=== PATIENT | female | born 1955 | race Caucasian/White ===

== ENCOUNTER 2018-07-22 13:05 | Emergency (ER) | payer OTHER ==
[~2018-07-22] VITALS: Ht 167.6 cm; Wt 76.2 kg
[~2018-07-22 13:05] MED LIST: ATOR10 PO; COMBIVENT RESPIM4 GM INH; CYCL10 PO; Collagen Plus1 EACH PO; DICLOFENAC 50MG PO; Diclofenac Pota50 MG PO; ENOX40I SC; EYE DROP TEARS15 ML OP; FERR325 PO; HYDMOR2 PO; HYDPAM50 PO; HYDR1TAB94 PO; Hair, Skin & N1 EACH PO; Hydrocodone-Ap1 EA23 PO; IBUP800 PO; LANS15EC PO; LANS30EC PO; METO25ER PO; MOME220I INH; OLME20 PO; OLME20-12. PO; OXYACE5T PO; OXYC10TA19 PO; PENVK500 PO; SIMV10 PO; TIOT18 INH; Valium5 MG PO; Verotin-Gr Cap1 EACH PO
[2018-07-22] MEDS ORDERED: GABA300 PO (13:12)
[2018-07-22] MEDS ORDERED: Hydrocodone-Ap1 EA23 PO (13:13)
[2018-07-22] MEDS ORDERED: EZET10 PO (13:14)
== END 2018-07-22 14:36 | disposition home or self-care (01) ==
LOC: ER 13:05
DX: S09.90XA Unspecified injury of head, initial encounter (principal); W22.8XXA Striking against or struck by other objects, initial encounter
CPT/HCPCS: 70450; 99283-25

== ENCOUNTER 2019-09-19 13:17 | Day surgery (SDC) | payer OTHER ==
[~2019-09-19 13:17] MED LIST changes: +EZET10 PO; +GABA300 PO
[2019-09-19] MEDS ORDERED: COMBIVENT RESPIM4 GM (13:46)
[2019-09-19] MEDS ORDERED: DULO30 (13:46)
[2019-09-19] MEDS ORDERED: TELM40 (13:47)
--- NOTE | 2019-09-19 14:17 | NUR ---
09/19/19 1417 Valente Ward S PATIENT STATED SHE ATE A SANDWICH AT 10:30 THIS MORNING SO THE CASE WAS CANCELLED. DR LAWLER INSTRUCTED PATIENT TO CALL AND RESCHEDULE CASE. PATIENT DISCHARGED TO LOBBY WITH AT HER SIDE.
== END 2019-09-19 14:05 | disposition home or self-care (01) ==
LOC: ORSCSDS 13:17
DX: R13.10 Dysphagia, unspecified (principal); F45.8 Other somatoform disorders; Z53.9 Procedure and treatment not carried out, unspecified reason
CPT/HCPCS: J2704; J7120

== ENCOUNTER 2019-10-04 11:01 | Day surgery (SDC) | payer OTHER ==
[~2019-10-04] VITALS: Ht 167.6 cm; Wt 70.4 kg
[~2019-10-04 11:01] MED LIST changes: +ASMANEX220 MC5; +Benicar Hct 201 EACH PO; +COMBIVENT RESPIM4 GM; +DULO30; +DULO60 PO; +GABAPENTIN600 MG PO; +Methimazole5 MG; +Norco 10-325 T1 EACH PO; +OMEPRAZOLE20 MG PO; +SALM50IP INH; +TELM40
== END 2019-10-04 13:38 | disposition home or self-care (01) ==
LOC: ORSCSDS 11:01
PROVIDERS: Student in an Organized Health Care Education/Training Program
PROC: 0DB68ZX Excision of Stomach, Via Natural or Artificial Opening Endoscopic, Diagnostic (ICD-10-PCS; principal; 2019-10-04 12:30)
PROC: 0DB58ZX Excision of Esophagus, Via Natural or Artificial Opening Endoscopic, Diagnostic (ICD-10-PCS; principal; 2019-10-04 12:30)
DX: R13.10 Dysphagia, unspecified (principal); K29.50 Unspecified chronic gastritis without bleeding; K31.89 Other diseases of stomach and duodenum; K22.8 Other specified diseases of esophagus; K21.0 Gastro-esophageal reflux disease with esophagitis; Z87.891 Personal history of nicotine dependence; Z79.899 Other long term (current) drug therapy; K44.9 Diaphragmatic hernia without obstruction or gangrene
CPT/HCPCS: 88305; 88312; 88342; J2704; J7120

== ENCOUNTER 2020-01-23 07:16 | Day surgery (SDC) | payer OTHER | END 2020-01-23 22:39 | disposition home or self-care (01) | LOC: MOI US 07:16 → MOI MAM 08:15 → MOI US 08:15 | DX: C50.812 Malignant neoplasm of overlapping sites of left female breast (principal); C50.811 Malignant neoplasm of overlapping sites of right female breast; Z17.0 Estrogen receptor positive status [ER+]; Z79.51 Long term (current) use of inhaled steroids; Z79.899 Other long term (current) drug therapy | CPT/HCPCS: 19083; 19084; 38505; 76942; 77066; A4648; G0279 ==

== ENCOUNTER → 2020-01-30 | Outpatient (CLI) | payer OTHER | END | disposition home or self-care (01) | LOC: PLD 13:49 → LAB SHORT 13:49 | DX: L60.2 Onychogryphosis (principal); B35.1 Tinea unguium | CPT/HCPCS: 88305; 88312 ==

== ENCOUNTER 2020-02-20 08:54 | Day surgery (SDC) | payer OTHER ==
[~2020-02-20] VITALS: Ht 167.6 cm; Wt 63.6 kg
[2020-02-20] MEDS ORDERED: PRED20 PO (09:32)
[2020-02-20] MEDS ORDERED: Pyridostigmine60 MG PO (09:33)
[2020-02-20] MEDS ORDERED: HAIR, SKIN AND1 EAC3 PO (09:35)
[2020-02-20] MEDS ORDERED: OSTEO BI-FLEX1 EACH PO (09:37)
[2020-02-20] MEDS ORDERED: Calcium 600 MG1 EACH PO (09:37)
[2020-02-20] MEDS ORDERED: CYCL10 PO (09:38)
[2020-02-20] MEDS ORDERED: PRENATAL DHA200 MG PO (09:38)
[2020-02-20] MEDS ORDERED: TELMISARTAN-HC1 EACH PO (09:39)
[2020-02-20] MEDS ORDERED: ALPR1 PO (09:40)
--- NOTE | 2020-02-20 09:43 | NUR ---
INTO SDS VIA W/C. 2 PERSON MAX ASSIST TO BED. UNABLE TO STAND TO WEIGHT. History, Chart, Medications and Allergies reviewed before start of procedure.Patient confirms NPO status and agrees with scheduled surgery. Patient reports completing Chlorhexadine shower X2 prior to admission to hospital.Surgical site prepped with 2% Chlorhexidine cloth wipe.
--- NOTE | 2020-02-20 14:03 | NUR ---
Discharge instructions reviewed with patient. Patient verbalizes understanding. REVIEWED IN PARKING LOT WITH . THIS RN FORGOT TO MAKE COPY OF INSTRUCTIONS SO PT LEFT WITH ONLY ORIGINAL COPY OF INSTRUCTIONS, SIGNED.
--- NOTE | 2020-02-20 14:04 | NUR ---
GAVE PT PAIN MEDICATION ORDERED BEFORE DISCHARGE PER REQUEST. PT STATES "SORE" BY NECK, DIDN'T GIVE PAIN NUMBER WHEN ASKED TO RATE. ENCOURAGED PT TO USE ICE PACK. STATES SHE WILL. DRG TO MEDIPORT C/D/I WELL STERI STRIP ABOVE DRG.
== END 2020-02-20 14:00 | disposition home or self-care (01) ==
LOC: ORSCMMR 08:54 → ORD 10:15 → ORSCMMR 10:15
PROVIDERS: Surgery
PROC: 05HM33Z Insertion of Infusion Device into Right Internal Jugular Vein, Percutaneous Approach (ICD-10-PCS; principal; 2020-02-20 10:15)
PROC: B5131ZA Fluoroscopy of Right Jugular Veins using Low Osmolar Contrast, Guidance (ICD-10-PCS; principal; 2020-02-20 10:15)
DX: C50.919 Malignant neoplasm of unspecified site of unspecified female breast (principal); I10 Essential (primary) hypertension; J45.909 Unspecified asthma, uncomplicated; Z87.891 Personal history of nicotine dependence; Z79.899 Other long term (current) drug therapy
CPT/HCPCS: 77001; A9270-GY; C1788; J0690; J1642; J2250; J2704; J3010; J7120

== ENCOUNTER 2020-03-28 18:34 | Observation (INO) | payer OTHER ==
[~2020-03-28] VITALS: Ht 167.6 cm; Wt 63.6 kg
[~2020-03-28 18:34] MED LIST changes: +ALPR1 PO; +Calcium 600 MG1 EACH PO; +HAIR, SKIN AND1 EAC3 PO; +OSTEO BI-FLEX1 EACH PO; +PRED20 PO; +PRENATAL DHA200 MG PO; +Pyridostigmine60 MG PO; +TELMISARTAN-HC1 EACH PO
--- NOTE | 2020-03-29 07:56 | NUR ---
Pt was admitted at 0215 to room 340. Pt is alert and oriented. She has been having extremly painful muscle cramps to left upper thigh that makes her cry out. Pt did receive flexeril 5mg with good relief. Has also had dilaudid 1mg IV about 0500. Pt is not able to move that leg at all or she gets cramps. Pt with pure wick that is used for voiding. Pt has call light in reach. Report to day shift RN.
--- NOTE | 2020-03-29 17:24 | NUR ---
PT AOX4 AND COOPERATIVE OF CARE. PT STARTED SHIFT STILL HAVING L HIP MUSCLE SPASMS. PT WAS TREATED WITH FLEXRIL AND PAIN MEDICATION PER EMAR. THIS STILL WAS NOT FIXING MUSCLE SPASM, THEY HAD IMPROVED YET ANY KIND OF MOVEMENT SENT HER PAIN UP. DR Uvaldo SMART RECOMMENDED TREATING WITH [facility] AND THIS SEEMS TO HAVE HELPED. PT HAS ALSO BEEN ABLE TO GET SOME NEEDED REST SHE HAD A REALLY BAD NIGHT PRIOR TO TODAY. PT HAS A PUREWICK FOR URINE SUCTION AND THIS WILL NOT CATCH ALL THE URINE IF PT HAS TO BE A LARGE AMOUNT. PT HAS HAD TO BE CHANGED X2 TODAY BOTH TIMES WERE HARD DUE TO THE MUSCLE SPASM. PT RESTING AT THIS TIME WITH CALL LIGHT IN REACH AND BED IN LOWEST POSITION. WILL CONTINUE TO MONITOR.
--- NOTE | 2020-03-30 05:21 | NUR ---
WINDOW AND DOOR INSTALLER SUMMARY PT A/O X4. PLEASANT AND COOPERATIVE. MEDICATED PT FOR MUSCLE SPASMS AND PAIN. PT USES PUREWICK/ EXTERNAL LOPEZ TO SUCTION. PT STATES PUREWICK IS WHAT SHE USES AT HOME CHANGING ATTENDS EACH TIME WITH EACH VOID HURTS TOO MUCH. PT VERY PAINFUL WITH MOVEMENT FROM HIPS DOWN. VSS. APPEARS TO HAVE SLEPT WELL.
--- NOTE | 2020-03-30 15:04 | NUR ---
Per admit trigger, I met with Angela to offer prayer and spiritual encouragement. She tells me she is hopeful her cancer will be cured with current treatment. She has a marlee elise and strong marriage. We prayed together for her family at her request. [facility] services will remain available.
--- NOTE | 2020-03-30 18:11 | NUR ---
PT AOX4 AND COOPERATIVE OF CARE. PT HAS BEEN ABLE TO GET UP TO BEDSIDE COMMODE TODAY AND HAS BEEN DOING WELL. PT TREATED FOR HER PAIN AND MUSCLE PER EMAR. PT RESTING IN BED FOR THE MOST PART WITH PILLOW UNER HER R LEG. PT STATES MOST OF THE PAIN IN NOW IN THE HIP AND MORE MOVEMENT TODAY FOR HER R LEG. PT HAS CALL LIGHT WITHIN REACH AND WILL CONTINUE TO MONITOR.
--- NOTE | 2020-03-31 03:26 | NUR ---
SHIFT SUMMARY HAS BEEN RESTING QUIETLY WITH OCCASIONAL INTERRUPTIONS THIS SHIFT, UP TO COMMODE WITH 2 PERSON ASSIST FOR TOILETING. CALL LIGHT IN REACH. NO NOTED SIGNS OF ACUTE DISTRESS AT THIS WRITING.
[2020-03-31] MEDS ORDERED: HYDACE10B PO (12:35)
--- NOTE | 2020-03-31 13:08 | NUR ---
DISCHARGE DISCHARGE MEDCIATIONS AND INSTRUCTIONS EXPLAINED TO PATIENT. PATIENT STATED UNDERSTANDING. FOLLOW UP WITH [facility] AND ONCOLOGY SCHEDULED. IV REMOVED WITHOUT DIFFICULTY. BELONGINGS WITH PATIENT. PATIENT TRANSFERED TO PRIVATE VEHICLE VIA WHEELCHAIR.
== END 2020-03-31 12:59 | disposition home or self-care (01) ==
LOC: ER 18:34 → MEDS 18:35
PROVIDERS: ADMIT Family Medicine
DX: M62.838 Other muscle spasm (principal); G62.9 Polyneuropathy, unspecified; C50.912 Malignant neoplasm of unspecified site of left female breast; C50.911 Malignant neoplasm of unspecified site of right female breast; Z17.0 Estrogen receptor positive status [ER+]; G70.00 Myasthenia gravis without (acute) exacerbation; Z88.2 Allergy status to sulfonamides; Z88.6 Allergy status to analgesic agent; Z88.8 Allergy status to other drugs, medicaments and biological substances; Z96.643 Presence of artificial hip joint, bilateral; Z79.899 Other long term (current) drug therapy; J43.9 Emphysema, unspecified; I10 Essential (primary) hypertension; E78.5 Hyperlipidemia, unspecified; E03.9 Hypothyroidism, unspecified; K21.9 Gastro-esophageal reflux disease without esophagitis; Z87.891 Personal history of nicotine dependence
CPT/HCPCS: 20611; 72100; 73502; 78306; 94640; 94760; 96372; 96374-59; 96375-59; 96376; 97163; 97166; 97535; 99285-25; A9270-GY; A9561; G0378; J0515; J1170; J1650; J2405; J3360; J7512

== ENCOUNTER 2020-11-16 12:41 | Emergency (ER) | payer OTHER ==
[~2020-11-16] VITALS: Ht 167.6 cm; Wt 57.6 kg
[~2020-11-16 12:41] MED LIST changes: +HYDACE10B PO
== END 2020-11-16 20:17 | disposition home or self-care (01) ==
LOC: ER 12:41
DX: Z76.89 Persons encountering health services in other specified circumstances (principal); Z79.899 Other long term (current) drug therapy; Z79.52 Long term (current) use of systemic steroids; H02.402 Unspecified ptosis of left eyelid; R47.81 Slurred speech; G70.00 Myasthenia gravis without (acute) exacerbation; I10 Essential (primary) hypertension; J43.9 Emphysema, unspecified; E03.9 Hypothyroidism, unspecified; K21.9 Gastro-esophageal reflux disease without esophagitis; Z88.2 Allergy status to sulfonamides; Z88.6 Allergy status to analgesic agent; Z88.8 Allergy status to other drugs, medicaments and biological substances; Z87.891 Personal history of nicotine dependence
CPT/HCPCS: 36415; 96374; 99284; J1568

== ENCOUNTER 2020-12-03 09:41 | Day surgery (SDC) | payer MEDICARE ==
[~2020-12-03] VITALS: Ht 167.6 cm; Wt 265.0 kg
== END 2020-12-03 11:59 | disposition home or self-care (01) ==
LOC: ORSCSDS 09:41
PROVIDERS: Orthopaedic Surgery
PROC: 0KB90ZX Excision of Right Lower Arm and Wrist Muscle, Open Approach, Diagnostic (ICD-10-PCS; principal; 2020-12-03 10:45)
DX: D49.2 Neoplasm of unspecified behavior of bone, soft tissue, and skin (principal); I10 Essential (primary) hypertension; E78.5 Hyperlipidemia, unspecified; F17.210 Nicotine dependence, cigarettes, uncomplicated; J45.909 Unspecified asthma, uncomplicated; E03.9 Hypothyroidism, unspecified; Z79.899 Other long term (current) drug therapy
CPT/HCPCS: 88305; J0690; J1100; J1720; J2250; J2405; J2704; J3010; J7120

== ENCOUNTER → 2021-03-19 | Outpatient (CLI) | payer MEDICARE | END | disposition home or self-care (01) | LOC: LAB SHORT 16:39 → LAB EV 16:39 | DX: R30.9 Painful micturition, unspecified (principal) | CPT/HCPCS: 87086 ==

== ENCOUNTER 2022-07-06 07:40 | Emergency (ER) | payer MEDICARE ==
[~2022-07-06] VITALS: Ht 167.6 cm; Wt 77.1 kg
[~2022-07-06 07:40] MED LIST changes: +Norco 5-325 Ta1 EACH PO
[2022-07-06 08:30] LABS: Source, Urine Clean Catch
[2022-07-06 08:45] LABS: Appearance, Urine Clear (Clear); Bilirubin, Urine Neg (Neg); Blood, Urine 3+ (Neg); Color, Urine Yellow (P-Yellow); Glucose Qualitative, Urine Neg (Neg); Ketones, Urine Neg (Neg); Leukocyte Esterase, Urine 2+ (Neg); Nitrite, Urine Neg (Neg); Protein, Urine 2+ (Neg); Specific Gravity, Urine 1.015 (1.003-1.022); Urobilinogen, Urine NORM (Normal)
[2022-07-06 08:58] LABS: BASOPHILS ABSOLUTE AUTO 0.07 K/mm3 (0.00-0.23); BASOPHILS PERCENT AUTO 1 % (0-2); EOSINOPHILS ABSOLUTE AUTO 0.09 K/mm3 (0.00-0.68); EOSINOPHILS PERCENT AUTO 1 % (0-6); Hematocrit 43.9 % (33.0-51.0); Hemoglobin 13.5 g/dL (11.5-16.0); IMMATURE GRAN ABSOLUTE AUTO 0.04 K/mm3 (0.00-0.10); IMMATURE GRAN PERCENT AUTO 0 % (0-1); LYMPHOCYTES ABSOLUTE AUTO 0.85 K/mm3 (0.84-5.20); LYMPHOCYTES PERCENT AUTO 6 % (21-46); MONOCYTES ABSOLUTE AUTO 0.74 K/mm3 (0.16-1.47); MONOCYTES PERCENT AUTO 5 % (4-13); Mean Corpuscular HGB 25.6 pg (26.0-34.0); Mean Corpuscular HGB Conc 30.8 g/dL (31.5-36.5); Mean Corpuscular Volume 83 fL (80-100); NEUTROPHILS ABSOLUTE AUTO 12.29 K/mm3 (1.96-9.15); NEUTROPHILS PERCENT AUTO 87 % (41-73); Platelet Count 318 K/mm3 (150-400); RDW Coefficient Variation 15.8 % (11.7-14.2); RDW Standard Deviation 47.8 fL (35.1-46.3); Red Blood Cell Count 5.28 M/mm3 (3.80-5.20); White Blood Cell Count 14.08 K/mm3 (4.00-11.30)
[2022-07-06 09:08] LABS: Squamous Epithelial Cells Mod /hpf (Few); White Blood Cells, Urine 25-50 /hpf (0-5)
[2022-07-06 09:09] LABS: Bacteria Mod /hpf
[2022-07-06 09:15] LABS: Albumin, Blood 3.9 g/dL (3.4-5.0); Albumin/Globulin Ratio 1.1 (0.8-1.8); Bilirubin, Total 0.4 mg/dL (0.1-1.0); Bun/Creatinine Ratio 26.5 (12.0-20.0); Calcium, Blood 9.1 mg/dL (8.5-10.1); Creatinine, Blood 0.57 mg/dL (0.40-1.00); Globulin, Blood 3.6 g/dL (2.2-4.0); Potassium, Blood 3.5 mmol/L (3.5-5.5); Total Protein, Blood 7.5 g/dL (6.4-8.2)
[2022-07-06] MEDS ORDERED: CEFP200 PO (10:11)
[2022-07-06] MEDS ORDERED: TAMS.4ER PO (10:11)
== END 2022-07-06 11:10 | disposition home or self-care (01) ==
LOC: ER 07:40
PROVIDERS: Emergency Medicine
DX: N13.2 Hydronephrosis with renal and ureteral calculous obstruction (principal); J43.9 Emphysema, unspecified; I10 Essential (primary) hypertension; E03.9 Hypothyroidism, unspecified; K21.9 Gastro-esophageal reflux disease without esophagitis; E78.5 Hyperlipidemia, unspecified; Z87.891 Personal history of nicotine dependence; Z79.899 Other long term (current) drug therapy; Z88.2 Allergy status to sulfonamides; Z88.8 Allergy status to other drugs, medicaments and biological substances; Z88.6 Allergy status to analgesic agent
CPT/HCPCS: 74176; 80053; 81001; 83690; 85025; A9270; J0696; J1170; J2405; J7030

== ENCOUNTER → 2022-12-02 | Outpatient (CLI) | payer MEDICARE ==
[~2022-12-02] MED LIST changes: +CEFP200 PO; +TAMS.4ER PO
== END | disposition home or self-care (01) ==
LOC: LAB SHORT 12:49 → PLD 12:49
DX: D48.5 Neoplasm of uncertain behavior of skin (principal)
CPT/HCPCS: 88305

== ENCOUNTER → 2023-06-30 | Outpatient (CLI) | payer MEDICARE | END | disposition home or self-care (01) | LOC: LAB 12:10 → LAB SHORT 12:10 | DX: R30.0 Dysuria (principal) | CPT/HCPCS: 87077; 87086; 87186 ==

== ENCOUNTER → 2023-07-06 | Outpatient (CLI) | payer MEDICARE | LOC: LAB SHORT 15:21 → PLD 15:21 | DX: D48.5 Neoplasm of uncertain behavior of skin (principal) | CPT/HCPCS: 88305 ==

== ENCOUNTER → 2023-09-23 | Outpatient (CLI) | payer MEDICARE | LOC: LAB 15:35 → LAB SHORT 15:35 | DX: R30.0 Dysuria (principal) | CPT/HCPCS: 87077; 87086; 87186 ==

== ENCOUNTER → 2023-10-14 | Outpatient (CLI) | payer MEDICARE | LOC: LAB 15:00 → LAB SHORT 15:00 | DX: R30.0 Dysuria (principal) | CPT/HCPCS: 87086 ==

== ENCOUNTER 2025-04-22 18:48 | Emergency (ER) | payer MEDICARE ==
[~2025-04-22] VITALS: Ht 167.6 cm; Wt 86.2 kg
[2025-04-22] MEDS ORDERED: CeFAZolin Sodium 2,000 MG in NS 100 ML IV ONE (19:35)
[2025-04-22 19:44] LABS: BASOPHILS ABSOLUTE AUTO 0.05 K/mm3 (0.00-0.23); BASOPHILS PERCENT AUTO 1 % (0-2); EOSINOPHILS ABSOLUTE AUTO 0.05 K/mm3 (0.00-0.68); EOSINOPHILS PERCENT AUTO 1 % (0-6); Hematocrit 41.7 % (33.0-51.0); Hemoglobin 13.5 g/dL (11.5-16.0); IMMATURE GRAN ABSOLUTE AUTO 0.02 K/mm3 (0.00-0.10); IMMATURE GRAN PERCENT AUTO 0 % (0-1); LYMPHOCYTES ABSOLUTE AUTO 1.27 K/mm3 (0.84-5.20); LYMPHOCYTES PERCENT AUTO 15 % (21-46); MONOCYTES ABSOLUTE AUTO 0.77 K/mm3 (0.16-1.47); MONOCYTES PERCENT AUTO 9 % (4-13); Mean Corpuscular HGB 27.8 pg (26.0-34.0); Mean Corpuscular HGB Conc 32.4 g/dL (31.5-36.5); Mean Corpuscular Volume 86 fL (80-100); Mean Platelet Volume 8.8 fL (9.1-12.4); NEUTROPHILS ABSOLUTE AUTO 6.35 K/mm3 (1.96-9.15); NEUTROPHILS PERCENT AUTO 75 % (41-73); Platelet Count 249 K/mm3 (150-400); RDW Coefficient Variation 14.7 % (11.7-14.2); RDW Standard Deviation 46.5 fL (35.1-46.3); Red Blood Cell Count 4.85 M/mm3 (3.80-5.20); White Blood Cell Count 8.51 K/mm3 (4.00-11.30)
[2025-04-22 20:10] LABS: Bun/Creatinine Ratio 16.1 (12.0-20.0); Calcium, Blood 8.5 mg/dL (8.5-10.1); Creatinine, Blood 0.62 mg/dL (0.40-1.00); Potassium, Blood 3.1 mmol/L (3.5-5.5)
[2025-04-22] MEDS ORDERED: AMOCLA875 PO (21:30)
[2025-04-22] MEDS ORDERED: Potassium Chloride 10 Meq Tablet SA PO ONE (21:30)
[2025-04-22] MEDS ORDERED: Ketorolac Tromethamine 15mg Vial IV ONE (21:30)
[2025-04-22] MEDS ORDERED: Potassium Chloride 20 MEQ TabCR PO ONE (21:30)
[2025-04-22 21:40] VITALS: BP 120/74
== END 2025-04-22 21:47 | disposition home or self-care (01) ==
LOC: ER 18:48
PROVIDERS: Emergency Medicine
DX: L03.213 Periorbital cellulitis (principal); J45.909 Unspecified asthma, uncomplicated; I10 Essential (primary) hypertension; K21.9 Gastro-esophageal reflux disease without esophagitis; E03.9 Hypothyroidism, unspecified; Z87.891 Personal history of nicotine dependence; Z79.899 Other long term (current) drug therapy; Z88.2 Allergy status to sulfonamides; Z88.6 Allergy status to analgesic agent; Z88.1 Allergy status to other antibiotic agents; Z88.8 Allergy status to other drugs, medicaments and biological substances
CPT/HCPCS: 70481; 80048; 85025; 96365-59; 96375-59; 99284-25; A9270; J0690; J1885; Q9967